=== PATIENT | female | born 1985 | race Caucasian/White ===

== ENCOUNTER 2018-02-15 15:40 | Outpatient (CLI) | payer OTHER ==
[~2018-02-15] VITALS: Ht 149.9 cm; Wt 90.0 kg
[2018-02-15 15:55] VITALS: BP 129/71
[2018-02-15] MEDS ORDERED: PREN1TAB60 PO (16:07)
== END 2018-02-15 17:05 | disposition home or self-care (01) ==
LOC: LDOP 15:40
PROVIDERS: ATTEND Obstetrics & Gynecology
DX: O13.3 Gestational [pregnancy-induced] hypertension without significant proteinuria, third trimester (principal); Z3A.38 38 weeks gestation of pregnancy
CPT/HCPCS: 59025; 99211; G0463